=== PATIENT | female | born 1955 | race Caucasian/White ===

== ENCOUNTER → 2018-10-20 | Outpatient (CLI) | payer OTHER ==
[~2018-10-20] MED LIST: AUGMENTIN; HYDROCODONE-AP1 EAC6 PO; NAPROSYN500 MG PO; NORCO 5-325 TA1 EACH PO; PAXIL10 MG; PERCOCET 5-3251 EACH PO; REQUIP4 MG PO; REQUIP5 MG PO
== END ==
LOC: M.RAD 10:38
DX: Z12.31 Encounter for screening mammogram for malignant neoplasm of breast (principal)

== ENCOUNTER → 2018-10-27 | Outpatient (CLI) | payer OTHER | LOC: M.RAD 10:52 | DX: M17.0 Bilateral primary osteoarthritis of knee (principal); M25.762 Osteophyte, left knee; M25.761 Osteophyte, right knee ==

== ENCOUNTER 2019-12-21 15:12 | Emergency (ER) | payer OTHER ==
[~2019-12-21] VITALS: Ht 154.9 cm; Wt 158.8 kg
[2019-12-21 16:35] LABS: ABSOLUTE BASOPHILS 0.1 thou/uL (0.0-0.2); ABSOLUTE EOSINOPHILS 0.1 thou/uL (0.0-0.7); ABSOLUTE LYMPHOCYTES 1.7 thou/uL (0.8-5.3); ABSOLUTE MONOCYTES 0.3 thou/uL (0.0-1.2); ABSOLUTE NEUTROPHILS 3.2 thou/uL (1.6-8.1); EOSINOPHILS 2.3 %; HEMATOCRIT 38.7 % (37.0-47.0); HEMOGLOBIN 12.9 gm/dL (12.0-15.0); LYMPHOCYTES 31.3 %; MCHC 33.2 g/dL (28.0-37.0); MCV 87.2 fL (80.0-100.0); MONOCYTES 6.1 %; MPV 7.9 fl. (7.2-11.1); NUCLEATED RBCS 0 /100WBC; PLATELET COUNT* 239 thou/uL (150-400); POLYS 59.3 %; RBC 4.44 mil/uL (4.20-5.00); RDW-CV 16.8 % (10.5-14.5); WBC 5.5 thou/uL (4.0-11.0)
[2019-12-21 16:45] LABS: CALCIUM 8.7 mg/dL (8.5-10.1); CREATININE 1.4 mg/dL (0.6-1.3); POTASSIUM 4.6 mmol/L (3.5-5.1)
[2019-12-21 16:48] LABS: APTT 26.1 Seconds (25.0-31.3); PROTIME 10.4 Seconds (9.20-11.50)
[2019-12-21 16:50] LABS: ALBUMIN 3.9 g/dL (3.4-5.0); TOTAL BILIRUBIN 0.3 mg/dL (<0.1-1.0)
[2019-12-21] MEDS ORDERED: SERTRALINE HCL100 MG PO (17:21)
[2019-12-21 18:49] VITALS: BP 146/79
== END 2019-12-21 18:49 | disposition home or self-care (01) ==
LOC: M.ERS 15:12
PROVIDERS: Personal Emergency Response Attendant
DX: M79.605 Pain in left leg (principal)

== ENCOUNTER 2020-05-18 10:45 | Emergency (ER) | payer OTHER ==
[~2020-05-18] VITALS: Ht 154.9 cm; Wt 152.4 kg
[~2020-05-18 10:45] MED LIST changes: +SERTRALINE HCL100 MG PO
[2020-05-18 11:14] VITALS: BP 162/81
== END 2020-05-18 11:14 | disposition home or self-care (01) ==
LOC: M.ERS 10:45
DX: I83.892 Varicose veins of left lower extremity with other complications (principal); Z79.899 Other long term (current) drug therapy; Z90.89 Acquired absence of other organs

== ENCOUNTER 2021-05-05 13:33 | Emergency (ER) | payer OTHER ==
[~2021-05-05] VITALS: Ht 154.9 cm; Wt 145.2 kg
[2021-05-05] MEDS ORDERED: DECADRON6 MG PO (13:41)
[2021-05-05] MEDS ORDERED: CLARITHROMYCIN500 MG PO (13:42)
[2021-05-05] MEDS ORDERED: PROAIR HFA8.5 GM INH (13:42)
[2021-05-05] MEDS ORDERED: DICLOFENAC SODIUM PO (13:43)
[2021-05-05] MEDS ORDERED: PROMETH-CODEIN 65 ML PO (13:43)
[2021-05-05] MEDS ORDERED: ABILIFY 2 MG2 M1 PO (13:44)
[2021-05-05 15:54] LABS: CALCIUM 9.1 mg/dL (8.5-10.1); CREATININE 1.4 mg/dL (0.6-1.3); POTASSIUM 4.3 mmol/L (3.5-5.1)
[2021-05-05 15:59] LABS: ALBUMIN 3.8 g/dL (3.4-5.0); TOTAL BILIRUBIN 0.3 mg/dL (<0.1-1.0); TOTAL PROTEIN 8.9 g/dL (6.4-8.2)
[2021-05-05 16:47] LABS: HEMATOCRIT 37.4 % (37.0-47.0); HEMOGLOBIN 12.5 gm/dL (12.0-15.0); MCH 28.2 pg (26.0-34.0); MCHC 33.4 g/dL (28.0-37.0); MCV 84.3 fL (80.0-100.0); MPV 7.4 fl. (7.2-11.1); RBC 4.43 mil/uL (4.20-5.00); RDW-CV 15.3 % (10.5-14.5); WBC 5.5 thou/uL (4.0-11.0)
[2021-05-05 18:08] VITALS: BP 133/79
--- NOTE | 2021-05-06 09:28 | EKG ---
[place] [address] ELECTROCARDIOGRAM REPORT Name: ABRAM VALLEJO Room: [facility]#: [id number] Admission: 05/05/21 Attend Phys: Discharge: 05/05/21 Date of : 57 Date of Service: 05/05/21 1500 Report #: [id number] THIS REPORT FOR: //name// [facility] ED Test Date: 2021-05-05 Test Time: 15:00:27 Pat Name: ABRAM VALLEJO Department: Room: Gender: Chief Information Officer: : 1955 Requested By: Linda Muro Order Number: [id number] MD: Edouard Rinaldi Measurements Intervals [place] Rate: 75 P: 68 TX: 168 QRS: -23 QRSD: 117 T: 31 QT: 388 QTc: 434 Interpretive Statements Sinus rhythm Nonspecific intraventricular conduction delay Low voltage, precordial leads No previous ECG available for comparison Electronically Signed On 05-06-2021 9:28:27 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
== END 2021-05-05 18:10 | disposition home or self-care (01) ==
LOC: M.ERS 13:33
PROVIDERS: Physician Assistant
DX: U07.1 COVID-19 (principal); Z91.048 Other nonmedicinal substance allergy status; Z79.899 Other long term (current) drug therapy